=== PATIENT | female | born 1960 | race Asian ===

== ENCOUNTER 2017-11-02 09:52 | Emergency (ER) | payer MEDICAID ==
[~2017-11-02] VITALS: Ht 152.4 cm; Wt 59.0 kg
[2017-11-02 09:52] VITALS: BP_SYST 138
[2017-11-02] MEDS ORDERED: LEVOFLOXACIN 500 MG TABLET PO ONE (11:00)
[2017-11-02] MEDS ORDERED: PHENAZOPYRIDINE HCL 100 MG TABLET PO ONE (11:00)
[2017-11-02 11:10] LABS: BILIRUBIN,URINE NEGATIVE (NEGATIVE); BLOOD, URINE 3+ (NEGATIVE); CLARITY/URINE SL HAZY (CLEAR); COLOR,URINE YELLOW (YELLOW); GLUCOSE,URINE NEGATIVE (NEGATIVE); KETONES,URINE NEGATIVE (NEGATIVE); LEUKOCYTE ESTERASE ,URINE 3+ (NEGATIVE); NITRITE, URINE NEGATIVE (NEGATIVE); PROTEIN URINE NEGATIVE (NEGATIVE); UROBILINOGEN,URINE 0.2 (0.2-1.0)
[2017-11-02 11:43] LABS: BACTERIA,URINE MODERATE /HPF (None Seen); WBC,URINE >100 /HPF (0-3)
[2017-11-02 11:44] LABS: MUCUS,URINE None Seen /LPF (None Seen)
[2017-11-02 12:08] VITALS: BP_SYST 128
== END 2017-11-02 12:08 | disposition home or self-care (01) ==
LOC: SED 09:52
DX: N39.0 Urinary tract infection, site not specified (principal)
CPT/HCPCS: 81000-TC; 81025; 87086; 99284; 99285

== ENCOUNTER 2022-04-04 16:18 | Emergency (ER) | payer MEDICAID ==
[~2022-04-04] VITALS: Ht 152.4 cm; Wt 59.0 kg
[2022-04-04 16:48] VITALS: BP_SYST 106
--- NOTE | 2022-04-04 16:50 | NUR ---
ER IN TRIAGE ROOM examining patient.
--- NOTE | 2022-04-04 16:51 | NUR ---
Patient brought in from home complaining of dysuria starting today. Patient reports having history of UTIs. Patient reports taking azo prior to arrival. Pain 6 out of 10. Vital signs stable
[2022-04-04] MEDS ORDERED: NITR-85 PO (16:55)
[2022-04-04] MEDS ORDERED: PHEN-726 PO (16:55)
[2022-04-04 16:59] VITALS: BP_SYST 106
--- NOTE | 2022-04-04 16:59 | NUR ---
Patient given written and verbal discharge instructions and verbalizes understanding. ER MD discussed with patient the results and treatment provided. Patient in stable condition. ID arm band removed. Rx of macrobid and pyridium given. Patient educated on pain management and to follow up with PMD. Pain Scale 4/10 Opportunity for questions provided and answered. Medication side effect fact sheet provided.
== END 2022-04-04 16:59 | disposition home or self-care (01) ==
LOC: SED 16:18
DX: N39.0 Urinary tract infection, site not specified (principal); R30.0 Dysuria; Z79.899 Other long term (current) drug therapy
CPT/HCPCS: 99283